=== PATIENT | female | born 2000 | race Caucasian/White ===

== ENCOUNTER 2019-05-03 07:39 | Day surgery (SDC) | payer OTHER ==
[~2019-05-03] VITALS: Ht 162.6 cm; Wt 77.1 kg
--- NOTE | ~2019-05-03 | OR ---
[facility] [address], [place] [address] Draft DATE OF OPERATION: 05/03/2019 SURGEON: Meghan Limon DO PREOPERATIVE DIAGNOSES: 1. Incomplete miscarriage. 2. Rh negative, status post RhoGAM. 3. IV drug use. POSTOPERATIVE DIAGNOSES: 1. Incomplete miscarriage. 2. Rh negative, status post RhoGAM. 3. IV drug use. PROCEDURE PERFORMED: Dilation and curettage. CYBER TRANSPORT SYSTEMS SPECIALIST: None. ANESTHESIA: General. ESTIMATED BLOOD LOSS: 50 mL. SPECIMEN: Products of conception. FINDINGS: Normal external genitalia. Normal urethra, clitoris, bilateral Erma's, and Bartholin glands. The placenta had prolapsed through the cervix and was removed with ring forceps. The fetus had already been expelled in the emergency department. The uterus was firm and involuted and bleeding was scant at the end of the procedure. COMPLICATIONS: None. INDICATIONS: Ms. Austin is an unfortunate 18-year-old, G3, P 0-0-3-0, who presented to the emergency PATIENT NAME: DEBBIE AUSTIN OPERATIVE REPORT DATE OF : 99 REPORT #: [id number] PHYSICIAN: MEGHAN LIMON DO PCP: NO PRIMARY CARE PHYSICIAN REPORT IS CONFIDENTIAL AND NOT TO BE RELEASED WITHOUT AUTHORIZATION [facility] [address], [place] [address] Draft department yesterday complaining of cramping and bleeding. An ultrasound was performed that demonstrated an intrauterine demise. The patient returned home and used IV methamphetamines. She returned this morning complaining of increasing bleeding. She passed the fetus in the emergency department. She was seen and evaluated by myself and the bleeding became heavier. She is Rh negative and received RhoGAM. The uterus was still enlarged and it was felt that this represented incomplete miscarriage. Decision was made to proceed with D and C. Risks, benefits, and alternatives were discussed in detail with the patient and her partner. The patient understood and wishes to proceed with the procedure. TECHNIQUE: The patient was taken to the operating room, where a time-out was performed to confirm correct patient, correct procedure. General anesthesia was adequately established. The patient was prepped and draped in dorsal lithotomy position, her feet in Yellofin stirrups. ICPs were on and running. No preoperative heparin was indicated. The patient did receive doxycycline 200 mg preoperatively orally per ACOG guidelines. The bladder was drained and a weighted speculum was placed in the vagina. The placenta was noted to be prolapsing through the cervix. This was grasped with ring forceps and gently removed. The placenta appears to be removed intact with no residual membranes or tissue remaining. The cervix was then gently dilated using Hegar dilators. A large sharp curette was selected and the curette was advanced gently to the fundus. Very gentle circumferential curettage was performed that demonstrated no additional remaining products of conception. The uterus was firm, involuted, and the bleeding was scant. The patient was then taken to PACU in good and stable condition. Sponge, needle, and instrument count was correct x2 at the end of the procedure. DO ANDRE Coulter/LINETTE /[id number] Copies: PATIENT NAME: DEBBIE AUSTIN OPERATIVE REPORT DATE OF : 99 REPORT #: [id number] PHYSICIAN: MEGHAN LIMON DO PCP: NO PRIMARY CARE PHYSICIAN REPORT IS CONFIDENTIAL AND NOT TO BE RELEASED WITHOUT AUTHORIZATION [address] [address] Draft ~ PATIENT NAME: DEBBIE AUSTIN OPERATIVE REPORT DATE OF : 99 REPORT #: [id number] PHYSICIAN: MEGHAN LIMON DO PCP: NO PRIMARY CARE PHYSICIAN REPORT IS CONFIDENTIAL AND NOT TO BE RELEASED WITHOUT AUTHORIZATION
--- NOTE | ~2019-05-03 | HP ---
[facility] [address], [place] [address] Draft ADMISSION DATE: 05/03/2019 CHIEF COMPLAINT: Vaginal bleeding and miscarriage. HISTORY OF PRESENT ILLNESS: Ms. Park is a 18-year-old G3, P-0-0-3-0, white female, who presents to the ER for miscarriage. She presented to the ED yesterday complaining of vaginal bleeding and ultrasound was performed that demonstrated a demise of 11 weeks gestation. Today, she returned to the ER with worsening bleeding and passed an 11-week sized fetus. Since then, she has continued to bleed and to be in significant pain. The uterus remains enlarged and she necessitates further evaluation and treatment in the OR. The patient does admit to a history of IV methamphetamine use. Her last use was last night. HIV and hepatitis C are pending. PAST MEDICAL HISTORY: Denies. PAST SURGICAL HISTORY: D and C following her 1st miscarriage. ALLERGIES: None. MEDICATIONS: None. SOCIAL HISTORY: The patient admits to IV drug use. Occasional alcohol use. No history of sexually transmitted diseases. REVIEW OF SYSTEMS: A complete review of systems was performed and negative except per HPI. PHYSICAL EXAMINATION: VITAL SIGNS: Pulse 53, respiratory rate 24, blood pressure 111/52, pulse ox 96. GENERAL: The patient is a thin white female, lying on her side in a hospital gurney. She cries out in pain. She is uncomfortable appearing. HEENT: Normocephalic, atraumatic. NECK: Supple. Trachea midline. No masses or lymphadenopathy. PATIENT NAME: DEBBIE PARK HISTORY AND PHYSICAL DATE OF : 99 REPORT #: [id number] PHYSICIAN: MEGHAN LIMON DO PCP: NO PRIMARY CARE PHYSICIAN REPORT IS CONFIDENTIAL AND NOT TO BE RELEASED WITHOUT AUTHORIZATION [facility] [address], [place] [address] Draft HEART: Regular rate and rhythm. LUNGS: Clear to auscultation bilaterally. ABDOMEN: Soft, nondistended, nontender. LEGS: No edema. PELVIC: The patient with moderate amount of blood on her vulva and inner thighs. She has a large clot in her pad. Nurse reports that this is the 5th pad that she has changed. The uterus remains enlarged and moderately tender. No other masses. LABORATORY DATA: Hemoglobin 12.9, platelets 232. Of note, the patient is Rh negative and has received RhoGAM. Hep C and HIV have been drawn and are pending. ASSESSMENT: 1. Incomplete miscarriage. 2. Rh negative. 3. IV drug use. PLAN: The patient with incomplete miscarriage. She has expelled the fetus. An Anora chromosomal test was performed on products of conception earlier today. She continues to cramp and bleed and decision is then made to proceed with D and C in the OR. We reviewed dilation and curettage in detail. She has undergone D and C once before, but that was a suction D and C. We reviewed risks including perforation, intrauterine adhesions, known as Asherman syndrome that could lead to infertility in the future, or continued bleeding that could lead to additional procedures up to and including hysterectomy. We discussed risk of infection. The patient will receive doxycycline 200 mg p.o. now per ACOG guidelines. LR was running at 125. Her preoperative hemoglobin was 12.9, although I suspect this is somewhat lower as she has had some continued bleeding. She is not tachycardic. She did receive RhoGAM. We will take the patient to the OR for dilation and curettage. All questions were answered to the best of my ability and patient's apparent satisfaction. Consents have been signed and the OR crew notified. Meghan Limon DO JDW/MODL /[id number] PATIENT NAME: DEBBIE PARK HISTORY AND PHYSICAL DATE OF : 99 REPORT #: [id number] PHYSICIAN: MEGHAN LIMON DO PCP: NO PRIMARY CARE PHYSICIAN REPORT IS CONFIDENTIAL AND NOT TO BE RELEASED WITHOUT AUTHORIZATION [facility] [address], [place] [address] Draft Copies: ~ PATIENT NAME: DEBBIE PARK HISTORY AND PHYSICAL DATE OF : [birth year] REPORT #: [id number] PHYSICIAN: MEGHAN LIMON DO PCP: NO PRIMARY CARE PHYSICIAN REPORT IS CONFIDENTIAL AND NOT TO BE RELEASED WITHOUT AUTHORIZATION
--- OUTSIDE RECORDS SUMMARY | 2019-05-03 07:42 | XMS ---
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 Cici VISIT COUNT (12 MO.) 2 LUIS MIGUEL Marsh TOTAL 2 NOTE: Visits indicate total known visits. ED/UCC VISIT TRACKING (12 MO.) 05/03/2019 07:39 LUIS MIGUEL Becerra OR TYPE: Emergency COMPLAINT: - POSSIBLE MISCARRIAGE 05/02/2019 11:02 LUIS MIGUEL Becerra OR TYPE: Emergency COMPLAINT: - POSS WITH VAGINAL BLEEDING INPATIENT VISIT TRACKING (12 MO.) No inpatient visits to display in this time frame [email or web address]
[2019-05-03] MEDS ORDERED: NORCO 5-325 TA1 EACH PO (08:40)
--- NOTE | 2019-05-03 11:40 | NUR ---
05/03/19 1140 Sheets,Elisa 1130 PT ARRVIVED WITH ORAL AIRWAY IN PLACE AND RESP EVEN AND UNLABORED. PT NONAROUSABLE TO PAINFUL STIMULI AND JAW THRUST USED OFF AND ON TO MAINTAIN AIRWAY. 1139 PT REACTIVE AND ABLE TO FOLLOW COMMANDS TO OPEN MOUTH AND AIRWAY REMOVED. PT BACK TO SLEEP. RESP EVEN AND UNLABORED.
--- NOTE | 2019-05-03 12:04 | NUR ---
SOUP AND SANDWICH ORDERED FROM DIETARY. ICED WATER GIVEN. CALL LIGHT W/IN REACH. PATIENT DRINKING WATER AND TOLERATING THAT WELL.
--- NOTE | 2019-05-03 12:08 | NUR ---
BOYFRIEND AT BEDSIDE.
[2019-05-03] MEDS ORDERED: MOTRIN IB200 MG PO (12:34)
--- NOTE | 2019-05-03 12:35 | NUR ---
CALL TO ER AND SPOKE WITH BRYSON JUAREZ AND SHE REPORTS THE RX FOR NORCO WAS NEVER GIVEN TO THE PATIENT IN THE ER.
--- NOTE | 2019-05-03 12:49 | NUR ---
PATIENT IS SITTING UP IN BED EATING HER SANDWICH.
--- NOTE | 2019-05-03 14:17 | NUR ---
PATIENT IS LYING FLAT ON HER LEFT SIDE. BOYFRIEND AT BEDSIDE. PATIENT ASKING FOR JELLY BEANS. JELLY BEANS ARE GIVEN.
== END 2019-05-03 14:35 | disposition home or self-care (01) ==
LOC: ED 07:39 → DS 10:32
PROVIDERS: Obstetrics & Gynecology
PROC: 10D17ZZ Extraction of Products of Conception, Retained, Via Natural or Artificial Opening (ICD-10-PCS; principal; 2019-05-03 11:00)
DX: O03.4 Incomplete spontaneous abortion without complication (principal); Z67.91 Unspecified blood type, Rh negative
CPT/HCPCS: 00952; 85025; 86703; 87521; 87522; 96374; 96375; 96376; 99284-25; J0330; J1100; J1885; J2250; J2405; J2590; J2704; J2765; J2790; J3010; J7030; J7120

== ENCOUNTER 2020-04-26 22:03 | Inpatient (IN) | payer OTHER ==
[~2020-04-26] VITALS: Ht 162.6 cm; Wt 84.4 kg
--- NOTE | ~2020-04-26 | OR ---
[facility] [address] [place], [place] [address] Draft DATE OF OPERATION: 04/27/2020 SURGEON: Meghan Limon DO PREOPERATIVE DIAGNOSES: 1. Term . 2. Non-reassuring heart tracing. POSTOPERATIVE DIAGNOSES: 1. Term . 2. Non-reassuring heart tracing. 3. Bandl's band with difficult extraction. 4. J-extension of uterine incision. PROCEDURE PERFORMED: Primary delivery with J-extension of uterine incision. SURGEON: Meghan Limon DO RIVET TOSSER: Samantha Peres MD ANESTHESIA: Epidural. ESTIMATED BLOOD LOSS: 700 mL. COMPLICATIONS: Difficult uterine extraction, secondary to Bandl's ring. FINDINGS: On laparotomy, a Bandl's ring was noted requiring Maylard extension, Pfannenstiel incision, and J-extension of low transverse uterine incision. Difficult extraction of the fetus and reverse breech positioning with the head still entrapped by the Bandl's ring. Bandl's ring was released with banded scissors. J-extension repaired in three layers and lower uterine incision repaired in 2 layers. Normal bilateral tubes and ovaries. Delivery of viable female , 6 pounds 15 ounces with Apgars 4 and 8. No nuchal cord noted. PH of the umbilical artery 7.02, base excess -11.3, pH venous 7.24 PATIENT NAME: DEBBIE AUSTIN OPERATIVE REPORT DATE OF : 99 REPORT #: [id number] PHYSICIAN: MEGHAN LIMON DO PCP: NO PRIMARY CARE PHYSICIAN REPORT IS CONFIDENTIAL AND NOT TO BE RELEASED WITHOUT AUTHORIZATION [facility] [address] [place], [place] [address] Draft with base excess -2.6. ESTIMATED BLOOD LOSS: 700 mL. INDICATIONS: Ms. Austin is a pleasant 19-year-old, G4, P0-0-3-0, white female with intrauterine at 40 weeks and 2 days gestation, who presented to Labor and Delivery with contractions increasing in frequency and intensity. She progressed to 5 cm and epidural was placed. Artificial rupture of membranes was performed. The patient then developed recurrent variable decelerations that were initially managed with intrauterine resuscitation including maternal repositioning. However, these variables progressed and decision was made to proceed with stat delivery. Risks, benefits, and alternatives were discussed with the patient. The patient understands and wishes to proceed with the procedure. TECHNIQUE: Decision was to proceed with primary low transverse delivery. The patient received terbutaline in the labor room and then was taken to the operating room where the patient was prepped and draped in the supine position with a bump under the right hip. Ancef 2 g were given preoperatively per SCIP protocol. ICPs were on and running and a Arvizu catheter had previously been inserted. The epidural was bolused and found to be adequate. A Pfannenstiel skin incision was made 2 cm above the pubic symphysis and incision was carried down to the fascia. Fascia was nicked in the midline and fascial incision was extended bilaterally using curved Orta scissors. The fascia was grasped with Vicky's, elevated, and the underlying rectus muscles dissected off bluntly and sharply. The rectus muscles were divided in the midline and peritoneum was grasped with hemostats elevated and entered sharply. Peritoneal incision was extended bilaterally using blunt dissection. Lower uterine segment was identified and noted to be poorly developed despite advanced cervical dilation at 7 cm. The Dylan self retractor was then placed and the lower segment again identified. Hysterotomy was performed just above the vesicouterine reflection and again noted to be quite sick. Allis-Blayne's were placed. The myometrium elevated and hysterotomy was completed with clear fluid noted. Hysterotomy was then extended bilaterally using blunt dissection. The surgeon's hand was then placed in the uterine cavity and a tight circumferential ring was noted between the lower uterine segment and the upper uterus consistent with a Bandl's ring. The vertex was attempted to be gently elevated through the ring. However, this was unable to be accomplished. Decision was made to proceed with extension of the uterine incision with the J-extension. Banded scissors was selected and the left edge of the uterine incision was extended up near the cornua. The fetus was not easily delivered in a reverse breech manner and another attempt was made to elevate the head from the lower uterine segment. This was unable to be gently PATIENT NAME: DEBBIE AUSTIN OPERATIVE REPORT DATE OF : 99 REPORT #: [id number] PHYSICIAN: MEGHAN LIMON DO PCP: NO PRIMARY CARE PHYSICIAN REPORT IS CONFIDENTIAL AND NOT TO BE RELEASED WITHOUT AUTHORIZATION [facility] [address] [place], [place] [address] Draft accomplished and decision was made to again attempt reverse breech presentation. The knee was grasped and swept medially and able to be delivered. The 2nd leg was swept medially and the legs and hips were delivered. The abdomen was delivered to the shoulders and the baby was rotated to the occiput anterior position. Surgeon's hand was placed on the maxilla and the fetus' head was flexed. It was unable to be delivered through the Bandl's ring. Band incisions were selected and the Bandl's ring was snipped using the bandage scissors and was released. The vertex then delivered. Cord was quickly doubly clamped and cut and the was handed to the waiting pediatric team for further care. Cord gases were obtained. The placenta was then manually extracted and sent to pathology for further evaluation. The uterus was cleared of any remaining products of conception or clot and the uterus was noted to be firm. Pitocin was given per protocol. The J-extension was then closed in 3 layers using 0 Vicryl and 0 Monocryl with excellent reapproximation and hemostasis. The lower uterine transverse incision was then closed in 2 layers using 0 Vicryl suture. A 2nd imbricating layer was closed using 0 Vicryl in a vertical manner with excellent imbrication. Small amount of oozing was noted in the midline and this was made hemostatic with a ygfier-qw-edbdi of 0 Vicryl. The pelvis was irrigated and found to be hemostatic. Normal tubes and ovaries bilaterally were identified. ACell sheet was applied to the lower uterine segment after the Dylan self retractor was removed. Peritoneum was then reapproximated using 2-0 Vicryl in a running nonlocked manner. The Maylard incision of the left abdominus muscle was then inspected and found to be hemostatic. It was reapproximated using 2 [id number] of 2-0 chromic. The rectus sheath was examined and made hemostatic with judicious use of Bovie electrocautery. The rectus sheath was then irrigated and again found to be hemostatic. Rectus was then reapproximated using 0 Vicryl and 3 interrupted sutures. ACell powder was applied to the rectus. Fascia was then reapproximated using 0 Vicryl in a running nonlocked manner. Subcu was reapproximated using 3-0 Vicryl in a running nonlocked manner. Skin was reapproximated using surgical jeanne. The uterus was Crede'd for scant amount of blood. The patient then remained in the operating room and a TAP block was performed by anesthesia at the completion of my procedure. Sponge, needle, and instrument count was correct x2 at the end of the procedure. Dr. Peres was present and participated in all portions of the procedure. Meghan Limon DO JDW/MODL /[id number] PATIENT NAME: DEBBIE AUSTIN OPERATIVE REPORT DATE OF : 99 REPORT #: [id number] PHYSICIAN: MEGHAN LIMON DO PCP: NO PRIMARY CARE PHYSICIAN REPORT IS CONFIDENTIAL AND NOT TO BE RELEASED WITHOUT AUTHORIZATION [facility] [address] [place] [address] Draft Copies: ~ PATIENT NAME: DEBBIE AUSTIN OPERATIVE REPORT DATE OF : 99 REPORT #: [id number] PHYSICIAN: MEGHAN LIMON DO PCP: NO PRIMARY CARE PHYSICIAN REPORT IS CONFIDENTIAL AND NOT TO BE RELEASED WITHOUT AUTHORIZATION
[~2020-04-26 22:03] MED LIST: MOTRIN IB200 MG PO; NORCO 5-325 TA1 EACH PO
--- NOTE | 2020-04-27 12:18 | PR ---
[facility] [address] [facility] [place] [address] Signed Progress Notes IP Datetime Report Generated by CPN: 04/27/2020 12:18 PROGRESS NOTES: [id number] Impression: Normal Progression of Labor; Reassuring Heart Rate Plan: Continue Present Management VITAL SIGNS: [id number] Vital Signs: Reviewed; Within Normal Limits EXAM: [id number] Dilatation: 3.5 Effacement: 90 Station: -2 Contractions: q 3-7 minutes MEMBRANES: [id number] Comments: Pt soaking in the tub and doing well. No questions or concerns at this time. RN to perform cervical check when out of the tub. No questions or concerns at this time. Continue expectant management. FETUS A: [id number] FHR Baseline: 125 Variability: Minimal - >Undetectable to <=5bpm Accelerations: None Decelerations: None FHR Category: Category II Presentation: Vertex Comments on Fetus A: No evidence of metabolic acidosis FETUS B: [id number] Signing Physician: Meghan Limon DO Copies: ~ *Electronically Signed* 04/27/20 1218 MEGHAN LIMON DO PATIENT NAME: PARK,DEBBIE [place] PROGRESS NOTE DATE OF : 99 PHYSICIAN: MEGHAN LIMON DO RPT #: [id number] REPORT IS CONFIDENTIAL AND NOT TO BE RELEASED WITHOUT AUTHORIZATION
--- NOTE | 2020-04-27 16:23 | PR ---
[facility] [address] [place], [place] [address] Signed Progress Notes IP Datetime Report Generated by CPN: 04/27/2020 16:22 PROGRESS NOTES: [id number] Impression: Normal Progression of Labor; Reassuring Heart Rate Procedures: Artificial ROM; Intrauterine Pressure Catheter; Sterile Vag Exam Plan: Continue Present Management VITAL SIGNS: [id number] Vital Signs: Reviewed; Within Normal Limits EXAM: [id number] Dilatation: 3.5 Effacement: 90 Station: -2 Contractions: q 3-7 minutes MEMBRANES: [id number] Comments: Pt seen and examined. Doing well. Comfortable w/ epidural. AROM performed without difficulty. IUPC placed due to slow progession of labor. Discussed indications for augmentation w/ pitocin. Pt understands and agrees. FETUS A: [id number] FHR Baseline: 125 Variability: Minimal - >Undetectable to <=5bpm Accelerations: None Decelerations: None FHR Category: Category II Presentation: Vertex Comments on Fetus A: No evidence of metabolic acidosis FETUS B: [id number] Signing Physician: Meghan Limon DO Copies: ~ *Electronically Signed* 04/27/20 2117 MEGHAN LIMON DO PATIENT NAME: DEBBIE PARK PROGRESS NOTE DATE OF : 99 PHYSICIAN: MEGHAN LIMON DO RPT #: [id number] REPORT IS CONFIDENTIAL AND NOT TO BE RELEASED WITHOUT AUTHORIZATION
--- NOTE | 2020-04-27 16:36 | PR ---
[facility] [address] [place] [place] [address] Signed Progress Notes IP Datetime Report Generated by CPN: 04/27/2020 16:36 PROGRESS NOTES: [id number] Impression: Normal Progression of Labor; Reassuring Heart Rate Procedures: Scalp Electrode; Sterile Vag Exam Plan: Continue Present Management Other Plans: FSE VITAL SIGNS: [id number] Vital Signs: Reviewed; Within Normal Limits EXAM: [id number] Dilatation: 3.5 Effacement: 90 Station: -2 Contractions: q 3-7 minutes MEMBRANES: [id number] Comments: Pt seen and examined. Varible decelerations noted since AROM. Sterile vaginal exam confirms no prolapsed cord or other abnormalities. FSE placed without difficulty. Maternal repositioning employed, and will monitor closely FETUS A: [id number] FHR Baseline: 125 Variability: Minimal - >Undetectable to <=5bpm Accelerations: None Decelerations: None FHR Category: Category II Presentation: Vertex Comments on Fetus A: No evidence of metabolic acidosis FETUS B: [id number] Signing Physician: Meghan Limon DO Copies: ~ *Electronically Signed* 04/27/20 2785 MEGHAN LIMON DO PATIENT NAME: DEBBIE PARK PROGRESS NOTE DATE OF : 99 PHYSICIAN: MEGHAN LIMON DO RPT #: [id number] REPORT IS CONFIDENTIAL AND NOT TO BE RELEASED WITHOUT AUTHORIZATION
--- NOTE | 2020-04-27 17:18 | PR ---
[facility] [address] [place], [place] [address] Signed Progress Notes IP Datetime Report Generated by CPAmos: 04/27/2020 17:18 PROGRESS NOTES: [id number] Impression: Normal Progression of Labor Procedures: Sterile Vag Exam Plan: Continue Present Management Other Plans: Consider amnioinfusion VITAL SIGNS: [id number] Vital Signs: Reviewed; Within Normal Limits EXAM: [id number] Dilatation: 3.5 Effacement: 90 Station: -2 Contractions: q 3-7 minutes MEMBRANES: [id number] Comments: Pt seen and examined. Comfortable w/ contractions. Continued variable decelerations noted. Deep at times w/ good return to baseline. Sat and reviewed tracing w/ pt and partner, and discussed variable decelerations and indications for amnioinfusion, , or expectant management. Pt understands and agrees FETUS A: [id number] FHR Baseline: 125 Variability: Minimal - >Undetectable to <=5bpm Accelerations: None Decelerations: None FHR Category: Category II Presentation: Vertex Comments on Fetus A: No evidence of metabolic acidosis FETUS B: [id number] Signing Physician: Meghan Limon DO Copies: ~ *Electronically Signed* 04/27/20 2961 MEGHAN LIMON DO PATIENT NAME: DEBBIE PARK PROGRESS NOTE DATE OF : 99 PHYSICIAN: MEGHAN LIMON DO RPT #: [id number] REPORT IS CONFIDENTIAL AND NOT TO BE RELEASED WITHOUT AUTHORIZATION
--- NOTE | 2020-04-27 17:56 | PR ---
[facility] [address] [place], [place] [address] Signed Progress Notes IP Datetime Report Generated by JOSE DE JESUS: 04/27/2020 17:55 PROGRESS NOTES: [id number] Impression: Normal Progression of Labor; Reassuring Heart Rate Procedures: Amnio Infusion Plan: Continue Present Management Other Plans: Consider amnioinfusion Informed Consent Obtain: Vaginal Delivery; Section Delivery Other Informed Consents: Amnioinfusion VITAL SIGNS: [id number] Vital Signs: Reviewed; Within Normal Limits EXAM: [id number] Dilatation: 3.5 Effacement: 90 Station: -2 Contractions: q 3-7 minutes MEMBRANES: [id number] Comments: Pt seen and examined. Doing well. Variabile decelerations continue with intermittent deep variables. Variables quite sensitive to maternal positioning. Will start amnioinfusion. Continue to monitor closely. FETUS A: [id number] FHR Baseline: 125 Variability: Minimal - >Undetectable to <=5bpm Accelerations: None Decelerations: None FHR Category: Category II Presentation: Vertex Comments on Fetus A: No evidence of metabolic acidosis FETUS B: [id number] Signing Physician: Meghan Limon DO Copies: ~ *Electronically Signed* 04/27/20 9558 MEGHAN LIMON DO PATIENT NAME: DEBBIE PARK PROGRESS NOTE DATE OF : 99 PHYSICIAN: MEGHAN LIMON DO RPT #: [id number] REPORT IS CONFIDENTIAL AND NOT TO BE RELEASED WITHOUT AUTHORIZATION
--- NOTE | 2020-04-27 18:19 | PR ---
[facility] [address] [place], [place] [address] Signed Progress Notes IP Datetime Report Generated by JOSE DE JESUS: 04/27/2020 18:19 PROGRESS NOTES: [id number] Impression: Non-reassuring Heart Rate Procedures: Sterile Vag Exam Plan: Deliver- Section Other Plans: Consider amnioinfusion Informed Consent Obtain: Section Delivery Other Informed Consents: Amnioinfusion VITAL SIGNS: [id number] Vital Signs: Reviewed; Within Normal Limits EXAM: [id number] Dilatation: 3.5 Effacement: 90 Station: -2 Contractions: q 3-7 minutes MEMBRANES: [id number] Comments: Pt w/ variables not improved w/ intrauterine management. Recommended primary LTCS. Pt and partner understand and agree. Consents signed, OR team notified and en route, and Dr. Peres here to assist. Will continue intrauterine rescussitation. Terbutaline x 1 given. To OR for delivery FETUS A: [id number] FHR Baseline: 125 Variability: Minimal - >Undetectable to <=5bpm Accelerations: None Decelerations: None FHR Category: Category II Presentation: Vertex Comments on Fetus A: No evidence of metabolic acidosis FETUS B: [id number] Signing Physician: Meghan Limon DO Copies: ~ *Electronically Signed* 04/27/20 1814 MEGHAN LIMON DO PATIENT NAME: DEBBIE PARK PROGRESS NOTE DATE OF : 99 PHYSICIAN: MEGHAN LIMON DO [facility] #: [id number] REPORT IS CONFIDENTIAL AND NOT TO BE RELEASED WITHOUT AUTHORIZATION
--- NOTE | 2020-04-27 20:16 | NUR ---
04/27/20 2016 Elisa Gregory 2002 PT ARRIVED TO ROOM 104, PT DENIES PAIN AND NAUSEA. VSS. 2015 BABY TO CHEST WITH FBC RN AND STARTING BREAST FEEDING. FATHER AT BEDSIDE.
--- NOTE | 2020-04-28 07:53 | PR ---
[facility] [address] [place], [place] [address] Signed PP Progress Notes Datetime Report Generated by CPN: 04/28/2020 07:53 SUBJECTIVE: [id number] Pain: Within Normal Limits Flatus: Yes Vital Signs: [id number] Vital Signs: Reviewed; Within Normal Limits Cardiovascular: Normal Respiratory: Normal Abdomen/Uterus: Normal Lochia: Normal Vulva/Perineum: Not Done Breasts: Not Done CVA Tenderness: Normal Extremities: Normal Incision: Normal Progress: Normal Exam Comments: Fundus firm U-2 nontender. Incision remains bandaged IMPRESSION/PLAN/PROCEDURES: [id number] Impression: Normal Progression Plan: Continue Present Management Progress Notes: Pt seen and examined. Doing well. Pain well controlled. well. Postoperative Hgb 10.3. Awaiting Rhogam workup. Reviewed Bandl's band, J-extension, and implications for future . Pt very grateful and reports baby is doing very well. All questions answered. Possible d/c home tomorrow Signing Physician: Meghan Limon DO Copies: ~ *Electronically Signed* 04/28/20 0753 MEGHAN LIMON DO PATIENT NAME: DEBBIE PARK PROGRESS NOTE DATE OF : 99 PHYSICIAN: MEGHAN LIMON DO RPT #: [id number] REPORT IS CONFIDENTIAL AND NOT TO BE RELEASED WITHOUT AUTHORIZATION
--- NOTE | 2020-04-29 08:47 | PR ---
[facility] [address] [place], [place] [address] Signed PP Progress Notes Datetime Report Generated by CPN: 04/29/2020 08:47 SUBJECTIVE: [id number] Pain: Within Normal Limits Nausea/Vomiting: Denies Flatus: Yes Bowel Movement: No Vital Signs: [id number] Vital Signs: Reviewed; Within Normal Limits Cardiovascular: Normal Respiratory: Normal Abdomen/Uterus: Normal Lochia: Normal Vulva/Perineum: Not Done Breasts: Not Done CVA Tenderness: Normal Extremities: Normal Incision: Normal Progress: Normal Exam Comments: Fundus firm U-2 nontender. Incision healing well IMPRESSION/PLAN/PROCEDURES: [id number] Impression: Normal Progression Plan: Remove Rhona; Discharge Progress Notes: Pt seen and examined. Doing well. Ambulating, voiding, and tolerating full diet. Pain and lochia minimal. well. No lightheadedness/dizziness. Strongly desires d/c home. Reviewed d/c instructions in detail. Planning OCPs pp. Discussed C/S w/ Bandl's ring, J-extension, and implications for future . All questions answered. D/C home. F/U in [address] Rodriguez. Signing Physician: Meghan Limon DO Copies: ~ *Electronically Signed* 04/29/20 0847 MEGHAN LIMON DO PATIENT NAME: DEBBIE PARK PROGRESS NOTE DATE OF : 99 PHYSICIAN: MEGHAN LIMON DO RPT #: [id number] REPORT IS CONFIDENTIAL AND NOT TO BE RELEASED WITHOUT AUTHORIZATION
== END 2020-04-29 17:16 | disposition home or self-care (01) | DRG 787 ==
LOC: FBCO 22:03 → FBC 04-27 06:00
PROVIDERS: ADMIT Obstetrics & Gynecology
PROC: 3E0T3BZ Introduction of Anesthetic Agent into Peripheral Nerves and Plexi, Percutaneous Approach (ICD-10-PCS; 2020-04-27)
PROC: 10907ZC Drainage of Amniotic Fluid, Therapeutic from Products of Conception, Via Natural or Artificial Opening (ICD-10-PCS; 2020-04-27)
PROC: 10H07YZ Insertion of Other Device into Products of Conception, Via Natural or Artificial Opening (ICD-10-PCS; 2020-04-27)
PROC: 00HU33Z Insertion of Infusion Device into Spinal Canal, Percutaneous Approach (ICD-10-PCS; 2020-04-27)
PROC: 3E0R3BZ Introduction of Anesthetic Agent into Spinal Canal, Percutaneous Approach (ICD-10-PCS; 2020-04-27)
PROC: 10D00Z1 Extraction of Products of Conception, Low, Open Approach (ICD-10-PCS; principal; 2020-04-27 18:00)
PROC: 3E0234Z Introduction of Serum, Toxoid and Vaccine into Muscle, Percutaneous Approach (ICD-10-PCS; 2020-04-29)
DX: O76 Abnormality in fetal heart rate and rhythm complicating labor and delivery (principal); O99.355 Diseases of the nervous system complicating the puerperium; G89.18 Other acute postprocedural pain; O99.334 Smoking (tobacco) complicating childbirth; F17.210 Nicotine dependence, cigarettes, uncomplicated; O62.4 Hypertonic, incoordinate, and prolonged uterine contractions; Z3A.40 40 weeks gestation of pregnancy; Z37.0 Single live birth; O26.893 Other specified pregnancy related conditions, third trimester; Z67.41 Type O blood, Rh negative
CPT/HCPCS: 01961; 36415; 59025; 76942; 82803; 83030; 85025; 85027; 86850; 86900; 86901; 99213; A9270; C1763; J0690; J1885; J2270; J2550; J2590; J2790; J2795; J3010; J7121

== ENCOUNTER → 2021-01-23 | Emergency (ER) | payer OTHER ==
[~2021-01-23] VITALS: Ht 162.6 cm; Wt 63.5 kg
== END ==
LOC: ED 15:17
DX: S60.812A Abrasion of left wrist, initial encounter (principal); W45.8XXA Other foreign body or object entering through skin, initial encounter; F17.200 Nicotine dependence, unspecified, uncomplicated
CPT/HCPCS: 99282

== ENCOUNTER 2021-12-14 13:49 | Emergency (ER) | payer OTHER ==
[~2021-12-14] VITALS: Ht 162.6 cm; Wt 70.3 kg
[2021-12-14] MEDS ORDERED: CEPHALEXIN500 M1 PO (19:13)
== END 2021-12-14 19:49 | disposition home or self-care (01) ==
LOC: ED 13:49
DX: N39.0 Urinary tract infection, site not specified (principal); R33.9 Retention of urine, unspecified; F17.200 Nicotine dependence, unspecified, uncomplicated
CPT/HCPCS: 36415; 51702; 74177; 80048; 81001; 84702; 85025; 86900; 99284-25; J0696; J1170; J1885; J2405; J7030; Q9967

== ENCOUNTER 2022-05-17 15:23 | Emergency (ER) | payer OTHER ==
[~2022-05-17] VITALS: Ht 165.1 cm; Wt 68.0 kg
--- NOTE | ~2022-05-17 | EKG ---
[facility] [address] [facility] [place], [place] [address] Draft EK completed, results pending confirmation PATIENT NAME: DEBBIE PARK Electrocardiogram DATE OF : 99 PHYSICIAN: PRELIMINARY REPORT #: [id number] REPORT IS CONFIDENTIAL AND NOT TO BE RELEASED WITHOUT AUTHORIZATION
[~2022-05-17 15:23] MED LIST changes: +CEPHALEXIN500 M1 PO
== END 2022-05-17 18:11 | disposition home or self-care (01) ==
LOC: ED 15:23
DX: R07.2 Precordial pain (principal); Z53.21 Procedure and treatment not carried out due to patient leaving prior to being seen by health care provider
CPT/HCPCS: 36415; 71045; 80053; 83735; 84484; 85025; 93005; 93010

== ENCOUNTER 2024-05-12 14:18 | Inpatient (IN) | payer OTHER ==
[~2024-05-12] VITALS: Ht 165.1 cm; Wt 78.9 kg
--- NOTE | ~2024-05-12 | OR ---
[facility] [address] [place], [place] [address] Draft DATE OF OPERATION: 05/18/2024 SURGEON: Meghan Limon DO PREOPERATIVE DIAGNOSES: 1. Intrauterine at 37 weeks gestation. 2. History of prior section with J extension due to Bandl's band. 3. Polysubstance abuse. 4. Rh negative. POSTOPERATIVE DIAGNOSES: 1. Intrauterine at 37 weeks gestation. 2. History of prior section with J extension due to Bandl's band. 3. Polysubstance abuse. 4. Rh negative. 5. Omental adhesions. PROCEDURES PERFORMED: 1. Repeat low transverse section. 2. Lysis of adhesions, minimal. MEDICAL ASSISTANT OB GYN: Samantha Peres MD. ANESTHESIA: Spinal with postoperative TAP blocks. ESTIMATED BLOOD LOSS: 600 mL. FINDINGS: Delivery of viable male , 5 pounds 10 ounces, 909 Apgars in the LOT position via repeat low transverse incision. Estimated blood loss 600 mL. Normal uterus, tubes, and ovaries. With scar tissue noted from prior J extension with no other abnormalities noted. Small amount of omental adhesions to the anterior abdominal wall was taken down without difficulty. COMPLICATIONS: None. PATIENT NAME: DEBBIE AUSTIN OPERATIVE REPORT DATE OF : 99 REPORT #: [id number] PHYSICIAN: MEGHAN LIMON (CARLOS) PCP: NO PRIMARY CARE PHYSICIAN REPORT IS CONFIDENTIAL AND NOT TO BE RELEASED WITHOUT AUTHORIZATION [facility] [address] [place], [place] [address] Draft INDICATIONS: Ms. Austin is a 23-year-old, G5, P1-0-3-1 with IUP at 37 weeks gestation, who presented for repeat low transverse delivery due to prior J extension. The patient with polysubstance abuse on methadone treatment, but also using methamphetamines and fentanyl. The patient was consented for repeat low transverse delivery and is not interested in bilateral salpingectomy. Risks, benefits, and alternatives were discussed in detail with the patient. The patient understands and wished to proceed with the procedure. PROCEDURE IN DETAIL: The patient was taken the OR. A time-out was performed to confirm correct patient, correct procedure. Spinal anesthesia was adequately established. The patient was prepped and draped in the supine position with a bump on the right hip. Arvizu catheter was inserted. The patient received Ancef 2 g preoperatively and no heparin was indicated. Once spinal was noted to be adequate, a Pfannenstiel skin incision made through the prior scar and carried down to the fascia. Fascia was nicked in the midline. Fascial incision was extended bilaterally using curved Orta scissors. Fascia was grasped with Vicky's, elevated, and the underlying rectus muscle dissected off bluntly and sharply. Rectus was divided in the midline bluntly and peritoneum was entered bluntly. Peritoneal incision was extended cephalad caudad using sharp and blunt dissection. An Dylan self retractor was inserted and lower uterine segment was identified. Hysterotomy was performed using surgical scalpel for clear fluid. Hysterotomy was extended bilaterally using blunt dissection. The surgeon's hand placed the uterine cavity and the vertex elevated in the abdomen delivered with the assistance of fundal pressure. No nuchal cord was identified. The was delivered with the assistance of fundal pressure and the was vigorous and cried. Cord was doubly clamped and cut. The handed to the waiting pediatric team for further care. Cord section was retained for pediatrics. The placenta was expressed, intact with a centrally inserted three-vessel cord. Pitocin was administered per protocol and bleeding was minimal. Uterine cavity was cleared of any remaining products of conception or clot and closed in two layers using 0 Monocryl in a running first locked layer with a second imbricating layer in the vertical manner. Small amount of oozing was noted. This was made hemostatic with [id number]. The pelvis was irrigated and hemostatic. The Dylan was removed and omental adhesions were noted at the apex of the peritoneal incision. These were brought down using a LigaSure exact device without difficulty. Peritoneum was then reapproximated using 2-0 Vicryl in a running nonlocked manner. Rectus was made hemostatic with judicious use of Bovie electrocautery and plicated in the midline using 0 Vicryl. Fay was applied to the rectus sheath. Fascia was reapproximated using 0 Vicryl in a running nonlocked manner. Subcu was very thin and closure of the subcu was not indicated. Skin was then reapproximated using surgical jeanne. The uterus was Crede'd for scant amount of PATIENT NAME: DEBBIE AUSTIN OPERATIVE REPORT DATE OF : 99 REPORT #: [id number] PHYSICIAN: MEGHAN LIMON (CARLOS) DO PCP: NO PRIMARY CARE PHYSICIAN REPORT IS CONFIDENTIAL AND NOT TO BE RELEASED WITHOUT AUTHORIZATION [facility] [address] [place], [place] [address] Draft blood. The patient was taken to PACU in good and stable condition. Following TAP block per Anesthesia. Sponge, needle and instrument were counts correct x2 at the end of the procedure. Dr. Peres was present and participated in all portions of the procedure. DO ANDRE Coulter/MODL /[id number] Copies: ~ PATIENT NAME: DEBBIE AUSTIN OPERATIVE REPORT DATE OF : 99 REPORT #: [id number] PHYSICIAN: MEGHAN LIMON DO (JD) PCP: NO PRIMARY CARE PHYSICIAN REPORT IS CONFIDENTIAL AND NOT TO BE RELEASED WITHOUT AUTHORIZATION
[~2024-05-12 14:18] MED LIST changes: +BUPRENORPHINE HC2 MG SL
[2024-05-17] MEDS ORDERED: LACTATED RINGER'S 1,000 ML IV SCH (17:15)
[2024-05-17] MEDS ORDERED: LACTATED RINGER'S 2,000 ML IV PRN (17:15)
[2024-05-18 06:22] LABS: HEMATOCRIT 31.9 % (35.0-50.0); MCH 31.7 (27-36); MCHC 34.5 g/dl (30-36); MCV 91.9 fl (81-99); RBC 3.47 M/ul (4.3-5.7); RDW 12.9 (10.5-15.0)
[2024-05-18 06:52] LABS: AMPHETAMINES, URINE POSITIVE (NEGATIVE); BARBITURATES, URINE NEGATIVE (NEGATIVE); BENZODIAZEPINE, URINE NEGATIVE (NEGATIVE); BUPRENORPHINE, URINE NEGATIVE (NEGATIVE); CANNABINOID, URINE NEGATIVE (NEGATIVE); COCAINE, URINE NEGATIVE (NEGATIVE); ECSTASY, URINE POSITIVE (NEGATIVE); FENTANYL, URINE POSITIVE (NEGATIVE); METHADONE, URINE POSITIVE (NEGATIVE); OPIATES, URINE NEGATIVE (NEGATIVE); OXYCODONE, URINE NEGATIVE (NEGATIVE); PHENCYCLIDINE, URINE NEGATIVE (NEGATIVE)
[2024-05-18] MEDS ORDERED: CEFAZOLIN SODIUM 2 GM/20 ML SYR IV SCH (07:00)
[2024-05-18] MEDS ORDERED: SOD+POT BICARB/CITRIC ACID 2 EA TABLET.EFF PO SCH (07:00)
[2024-05-18 07:05] VITALS: BP 114/76
[2024-05-18 07:12] LABS: ABO O; ANTIBODY SCREEN POSITIVE; RH NEGATIVE
[2024-05-18] MEDS ORDERED: ondansetron HCL 4 MG/2 ML VIAL IV PRN ×3 (07:15→09:30)
[2024-05-18] MEDS ORDERED: DEXAMETHASONE SOD PHOS 4 MG/ML VIAL ONE ×2 (07:15→08:14)
[2024-05-18] MEDS ORDERED: KETOROLAC TROMETHAMINE 30 MG/ML VIAL ONE (07:15)
[2024-05-18] MEDS ORDERED: NALOXONE HCL 0.4 MG SYR IV PRN ×2 (07:15→09:30)
[2024-05-18] MEDS ORDERED: ondansetron HCL 4 MG/2 ML VIAL ONE (07:15)
[2024-05-18] MEDS ORDERED: SODIUM CHLORIDE 0.9% 80 ML IV ONE (07:15)
[2024-05-18] MEDS ORDERED: fentaNYL citrate 50 MCG/ML SDV IV PRN (07:15)
[2024-05-18] MEDS ORDERED: ePHEDrine sulfate 50 MG/ML AMP ONE (07:15)
[2024-05-18] MEDS ORDERED: IBLOOD GLUCOSE TEST STRIP 1 EA TEST VI PRN (07:15)
[2024-05-18] MEDS ORDERED: PHENYLEPHRINE HCL 10 MG/ML VIAL ONE (07:15)
[2024-05-18] MEDS ORDERED: OXYTOCIN 10 UNITS/ML VIAL ONE (07:15)
[2024-05-18] MEDS ORDERED: BUPIVACAINE 0.75% IN DEXTROSE 2 ML AMP ONE ×2 (07:16→21:48)
[2024-05-18] MEDS ORDERED: LIDOCAINE HCL 2% 5 ML SDV ONE ×2 (07:16→21:48)
[2024-05-18] MEDS ORDERED: MORPHINE SULFATE 1 MG/ML VIAL ONE (07:16)
[2024-05-18] MEDS ORDERED: fentaNYL citrate 100 MCG/2 ML VIAL ONE (07:16)
[2024-05-18] MEDS ORDERED: VASOPRESSIN 20 UNITS/ML VIAL ONE (07:39)
[2024-05-18 07:44] LABS: ANTIBODY IDENTIFICATION ANTI-D
[2024-05-18] MEDS ORDERED: Ropivacaine HCl 0.5% 30 ML VIAL ONE (08:14)
[2024-05-18] MEDS ORDERED: dexmedeTOMIDine HCl 200 MCG/2 ML VIAL ONE ×2 (08:14→21:48)
[2024-05-18] MEDS ORDERED: SODIUM CHLORIDE 0.9% 20 ML IV ONE (08:14)
[2024-05-18] MEDS ORDERED: LACTATED RINGER'S 1,000 ML IV ONE (08:29)
[2024-05-18] MEDS ORDERED: OXYCODONE HCL 5 MG TAB PO PRN (09:00)
[2024-05-18] MEDS ORDERED: PROMETHAZINE HCL 25 MG SUPP PR PRN (09:00)
[2024-05-18] MEDS ORDERED: SENNOSIDES/DOCUSATE 1 EA TAB PO SCH (09:00)
[2024-05-18] MEDS ORDERED: PROMETHAZINE HCL 25 MG TAB PO PRN (09:00)
[2024-05-18] MEDS ORDERED: MORPHINE SULFATE 15 MG TABCR PO SCH (09:00)
[2024-05-18] MEDS ORDERED: METOCLOPRAMIDE HCL 10 MG/2 ML SDV IV PRN (09:00)
[2024-05-18] MEDS ORDERED: OXYTOCIN/0.9 % SODIUM CHLORIDE 500 ML IV SCH (09:00)
[2024-05-18] MEDS ORDERED: LACTATED RINGER'S 1,000 ML IV SCH (09:00)
[2024-05-18] MEDS ORDERED: bisacodyL 10 MG SUPP PR PRN (09:00)
[2024-05-18] MEDS ORDERED: PROCHLORPERAZINE EDISYLATE 10 MG/2 ML VIAL IV PRN (09:00)
[2024-05-18] MEDS ORDERED: METHADONE HCL 10 MG TAB PO SCH (09:00)
--- NOTE | 2024-05-18 09:15 | NUR ---
05/18/24 0915 Sheets,Elisa 7139 PT ARRIVED TO PACU ON RA, PT ASLEEP OFF AND ON AND REPORTS "BEING TIRED." SINUS IRREGULAR HEART RATE NOTED AND CORPORATE COMMUNICATIONS ASSOCIATE AWARE. PT REPORTS SMALL AMOUNT OF PAIN WITH FUNDAL CHECK, /. MID SIZE CLOT NOTED WITH FUNDAL CHECK, FBC RN AWARE. PT RESTING AND DENIES CONCERNS. PT SIGNIFICANT OTHER HOLDING BABY.
[2024-05-18] MEDS ORDERED: diphenhydrAMINE HCL 25 MG CAP PO PRN (09:30)
[2024-05-18] MEDS ORDERED: MORPHINE SULFATE 4 MG/ML VIAL IV PRN (09:30)
[2024-05-18] MEDS ORDERED: HYDROmorphone HCL 1 MG/ML SYR IV PRN (09:30)
[2024-05-18] MEDS ORDERED: KETOROLAC TROMETHAMINE 30 MG/ML VIAL IV PRN (09:30)
[2024-05-18] MEDS ORDERED: SIMETHICONE 125 MG TABLET CHEWABLE PO SCH (11:00)
[2024-05-18] MEDS ORDERED: TRANEXAMIC ACID IN NACL,ISO-OS 100 ML IV ONE (11:40)
[2024-05-18] MEDS ORDERED: TRANEXAMIC ACID 1,000 MG in SODIUM CHLORIDE 0.9% 100 ML IV ONE (11:50)
[2024-05-18] MEDS ORDERED: miSOPROStoL 200 MCG TAB PO ONE ×2 (11:50)
[2024-05-18 13:23] LABS: HEMATOCRIT 32.8 % (35.0-50.0); MCH 30.8 (27-36); MCHC 33.6 g/dl (30-36); MCV 91.9 fl (81-99); RBC 3.57 M/ul (4.3-5.7); RDW 12.9 (10.5-15.0)
[2024-05-18 13:24] LABS: INR 1.02 (0.80-1.30); PARTIAL THROMBOPLASTIN TIME 27.1 Sec (22.9-41.3); PROTIME 12.7 Sec (11.2-14.2)
[2024-05-18] MEDS ORDERED: KETOROLAC TROMETHAMINE 30 MG/ML VIAL IV SCH (14:00)
[2024-05-18] MEDS ORDERED: FERROUS SULFATE 325 MG TAB PO SCH (17:00)
[2024-05-18] MEDS ORDERED: METHYLERGONOVINE MALEATE 0.2 MG/ML AMP IM ONE (19:00)
--- NOTE | 2024-05-18 19:06 | PR ---
[facility] [address] [place], [place] [address] Signed PP Progress Notes Datetime Report Generated by CPN: 05/18/2024 19:06 SUBJECTIVE: [id number] Pain: Within Normal Limits Nausea/Vomiting: Denies Flatus: No Bowel Movement: No Vital Signs: [id number] Vital Signs: Reviewed Cardiovascular: Normal Respiratory: Normal Abdomen/Uterus: Abnormal Lochia: Abnormal Vulva/Perineum: Normal Breasts: Not Done CVA Tenderness: Normal Extremities: Normal Incision: Normal Progress: Normal Exam Comments: Fundus U=0 Bimanual exam shows moderate size clot in the uterus that was evacuated. Uncomfortable but tolerated well. IMPRESSION/PLAN/PROCEDURES: [id number] Impression: Normal Progression Other Procedures: Methergine 0.2mg IM x 1 dose Progress Notes: Pt seen and examined. Doing well. Have reviewed QBL w/ RN throughout day. Pt received TXA and cytotec but continues to have some bleeding. Coag panel per protocol normal this afternoon w/ normal fibrinogen. See RN chartig for exact QBL but approx 1300cc. Uterine clot evacuated and uterus firm and involuted. Will administere methergine 0.2mg IM x one dose. Will continue to monitor. Consider Marj if continued bleeding. Reviewed w/ pt. Will check CBC in AM. All questions answered Signing Physician: Meghan Limon DO Copies: ~ *Electronically Signed* 05/18/24 4789 MEGHAN LIMON (CARLOS) DO PATIENT NAME: DEBBIE PARK PROGRESS NOTE DATE OF : 99 PHYSICIAN: MEGHAN LIMON (JD) DO RPT #: [id number] REPORT IS CONFIDENTIAL AND NOT TO BE RELEASED WITHOUT AUTHORIZATION
--- NOTE | 2024-05-18 21:19 | PR ---
[facility] [address] [facility] [place] [place] [address] Signed PP Progress Notes Datetime Report Generated by CPN: 05/18/2024 21:19 SUBJECTIVE: [id number] Pain: Within Normal Limits Pain Comments: ongoing bleeding Nausea/Vomiting: Denies Flatus: No Bowel Movement: No Vital Signs: [id number] Vital Signs: Reviewed; Within Normal Limits Cardiovascular: Normal Respiratory: Normal Abdomen/Uterus: Abnormal Lochia: Abnormal Vulva/Perineum: Normal Breasts: Not Done CVA Tenderness: Normal Extremities: Normal Incision: Normal Progress: Normal Exam Comments: Uterus examined and large clot in uterus. She tolerated exam poorly. IMPRESSION/PLAN/PROCEDURES: [id number] Impression: Normal Progression Other Impression: Ongoing bleeding Other Plans: To OR to evacuate clots Other Procedures: Methergine 0.2mg IM x 1 dose Progress Notes: She is continuing to have some ongoing bleeding. Exam of the uterus shows continued large clot in the uterus which could not be removed. I feel evacuation is necessary to allow bleeding to improve. I think the Marj may also be needed to assure control of the pp bleeding. She is stable at this time. Discussed w/ patient and partner and they agree with plan. Also discussed w/ Dr. Limon. Signing Physician: Samantha Peres MD Copies: ~ *Electronically Signed* 05/18/24 9076 SAMANTHA PERES MD PATIENT NAME: DEBBIE PARK PROGRESS NOTE DATE OF : 99 PHYSICIAN: SAMANTHA PERES MD RPT #: [id number] REPORT IS CONFIDENTIAL AND NOT TO BE RELEASED WITHOUT AUTHORIZATION
[2024-05-18] MEDS ORDERED: CEFAZOLIN SODIUM 2 GM/20 ML SYR ONE (21:42)
[2024-05-18] MEDS ORDERED: CEFAZOLIN SODIUM 2 GM/20 ML SYR IV ONE (22:00)
[2024-05-18] MEDS ORDERED: propofoL 200 MG/20 ML VIAL ONE (22:09)
[2024-05-18 22:52] LABS: HEMATOCRIT 25.5 % (35.0-50.0); HEMOGLOBIN 8.8 g/dL (12.0-18.0); MCH 31.4 (27-36); MCHC 34.4 g/dl (30-36); MCV 91.3 fl (81-99); RBC 2.79 M/ul (4.3-5.7); RDW 13.2 (10.5-15.0)
[2024-05-18 23:02] LABS: PARTIAL THROMBOPLASTIN TIME 26.5 Sec (22.9-41.3)
[2024-05-18 23:03] LABS: INR 1.04 (0.80-1.30); PROTIME 12.9 Sec (11.2-14.2)
[2024-05-18 23:11] VITALS: BP 112/56
--- NOTE | 2024-05-18 23:16 | NUR ---
05/18/24 2316 Francisca Laureano 2229- PT ARRIVES TO PACU, SEMI ATKINSON POSITION. DROWSY BUT WAKES EASILY TO VERBAL STIMULI. LR INFUSING TO 20 G IV IN LAC. BREATHING EVEN AND NON LABORED. EMILY IN PLACE AND PLACED TO 80 MMHG, NO BLEEDING NOTED. PT REPORTS FEET FEEL NUMB BUT ABLE TO MOVE TOES. DENIES PAIN AND NAUSEA. ALL MONITORS IN PLACE. 2245- LAB AT BEDSIDE TO COLLECT COAGS, AFTER 1 STICK UNABLE TO COLLECT, LABS COLLECTED FROM IV SITE. 2255- PT RESTING INTERMITTENTLY, NO SIGNS OF DISTRESS. RODRIGUEZ CATHETER IN PLACE DRAINAING CLEAR YELLOW URINE. NO BLEEDING NOTED AROUND EMILY. PT TO GO BACK TO [facility]. 2303- PT TAKEN BACK TO [facility], ROOM 106. BED PLUGGED IN, SIGNIFICANT OTHER IN ROOM AND BABY IN [facility]. LR CONTINUES TO INFUSE TO LAC IV. EMILY PLACED TO 80 MMHG. PT DENIES PAIN AND NAUSEA. REPORT TO DEBBIE MASSEY AT BEDSIDE, CARE OF PT TURNED OVER AT THIS TIME.
[2024-05-19] MEDS ORDERED: LACTATED RINGER'S 1,000 ML IV SCH (03:30)
[2024-05-19 03:38] LABS: HEMATOCRIT 22.5 % (35.0-50.0); HEMOGLOBIN 7.8 g/dL (12.0-18.0); MCH 31.5 (27-36); MCHC 34.8 g/dl (30-36); MCV 90.6 fl (81-99); RBC 2.48 M/ul (4.3-5.7); RDW 13.3 (10.5-15.0)
[2024-05-19 03:47] LABS: PARTIAL THROMBOPLASTIN TIME 27.8 Sec (22.9-41.3)
[2024-05-19 03:48] LABS: INR 1.06 (0.80-1.30); PROTIME 13.1 Sec (11.2-14.2)
[2024-05-19 04:21] LABS: ABO O; ANTIBODY SCREEN POSITIVE; RH NEGATIVE
[2024-05-19 04:22] LABS: ANTIBODY IDENTIFICATION ANTI-D; FETAL HEMOGLOBIN SCREEN NEGATIVE; RHIG DOSE 1; RHIG STATUS CANDIDATE; RHIG VIAL 1 RG23O03-Q
[2024-05-19] MEDS ORDERED: CEFAZOLIN SODIUM 2 GM/20 ML SYR IV SCH (04:30)
[2024-05-19 06:07] LABS: HEMATOCRIT 21.9 % (35.0-50.0); HEMOGLOBIN 7.6 g/dL (12.0-18.0); MCH 31.8 (27-36); RBC 2.4 M/ul (4.3-5.7); RDW 13.1 (10.5-15.0)
[2024-05-19] MEDS ORDERED: ondansetron HCL 4 MG/2 ML VIAL IV PRN (09:30)
--- NOTE | 2024-05-19 09:44 | PR ---
[facility] [address] [place], [place] [address] Signed PP Progress Notes Datetime Report Generated by CPN: 05/19/2024 09:44 SUBJECTIVE: [id number] Pain: Within Normal Limits Pain Comments: ongoing bleeding Nausea/Vomiting: Denies Flatus: Yes Bowel Movement: No Vital Signs: [id number] Vital Signs: Reviewed; Within Normal Limits Cardiovascular: Normal Respiratory: Normal Abdomen/Uterus: Normal Lochia: Normal Vulva/Perineum: Normal Breasts: Not Done CVA Tenderness: Not Done Extremities: Normal Incision: Normal Progress: Normal Exam Comments: Fundus firm U-2 moderately tender. No fevers/chills or other concerns. Marj removed after evaluation for any ongoing bleeding. IMPRESSION/PLAN/PROCEDURES: [id number] Impression: Normal Progression Other Impression: Acute blood loss anemia Plan: Continue Present Management Other Plans: To OR to evacuate clots Other Procedures: Marj removal Progress Notes: Pt seen and examined. Doing well. Pain and cravings controlled w/ current regimen. Scant bleeding in Marj tubing and Marj then removed w/out difficulty. Reviewed Hgb and pt asymptomatic at this point but has not ambulated. Good urine output w/ clear urine noted in tubing. Discussed indications for blood transfusion if needed, but will hold off at this point. Will coordinate w/ Methadone clinic re discharge methadone dosing. All questions answered. Signing Physician: Meghan Limon DO *Electronically Signed* 05/19/24 0960 MEGHAN LIMON (CARLOS) DO PATIENT NAME: DEBBIE PARK PROGRESS NOTE DATE OF : 99 PHYSICIAN: MEGHAN LIMON DO (JD) RPT #: [id number] REPORT IS CONFIDENTIAL AND NOT TO BE RELEASED WITHOUT AUTHORIZATION
[2024-05-19] MEDS ORDERED: ACETAMINOPHEN 500 MG TAB PO PRN (13:30)
[2024-05-19] MEDS ORDERED: IBUPROFEN 800 MG TAB PO SCH (15:00)
[2024-05-19 15:06] LABS: HEMATOCRIT 20.1 % (35.0-50.0); HEMOGLOBIN 7.1 g/dL (12.0-18.0); MCH 32.2 (27-36); MCHC 35.3 g/dl (30-36); MCV 91.1 fl (81-99); RBC 2.21 M/ul (4.3-5.7); RDW 13.2 (10.5-15.0)
[2024-05-20 08:42] LABS: BASOPHILS 0.5 % (0-2); EOSINOPHILS 0.1 % (0-6); HEMATOCRIT 18.5 % (35.0-50.0); HEMOGLOBIN 6.5 g/dL (12.0-18.0); LYMPHOCYTES 34.8 % (24-44); MCHC 34.9 g/dl (30-36); MCV 91.7 fl (81-99); MONOCYTES 6.8 % (0-12); NEUTROPHILS 57.8 % (39-80); PLATELET COUNT 199 K/uL (140-440); RBC 2.02 M/ul (4.3-5.7); RDW 13.3 (10.5-15.0)
--- NOTE | 2024-05-20 10:07 | PR ---
[facility] [address] [place], [place] [address] Signed PP Progress Notes Datetime Report Generated by CPN: 05/20/2024 10:07 SUBJECTIVE: [id number] Pain: Within Normal Limits Pain Comments: ongoing bleeding Nausea/Vomiting: Denies Flatus: Yes Bowel Movement: No Vital Signs: [id number] Vital Signs: Reviewed; Within Normal Limits Cardiovascular: Normal Respiratory: Normal Abdomen/Uterus: Normal Lochia: Normal Vulva/Perineum: Not Done Breasts: Not Done CVA Tenderness: Normal Extremities: Normal Incision: Normal Progress: Not Applicable Exam Comments: Fundus firm U-2 nontender. Incision bandaged and dry. Scant blood IMPRESSION/PLAN/PROCEDURES: [id number] Impression: Normal Progression Other Impression: Acute blood loss anemia Plan: Continue Present Management Other Plans: To OR to evacuate clots Other Procedures: Marj removal Progress Notes: Pt seen and examined. Doing well. Ambulating, voiding, and tolerating full diet. No lightheadedness and dizziness. Hgb 6.5 this AM and fibrinogen normal. Discussed iron infusion vs transfusion if needed. All questions answered. Signing Physician: Meghan Limon DO Copies: ~ *Electronically Signed* 05/20/24 MEGHAN WATSON (CARLOS) DO PATIENT NAME: DEBBIE PARK PROGRESS NOTE DATE OF : 99 PHYSICIAN: MEGHAN LIMON) DO RPT #: [id number] REPORT IS CONFIDENTIAL AND NOT TO BE RELEASED WITHOUT AUTHORIZATION
--- NOTE | 2024-05-23 15:42 | OR ---
[facility] [address] [place], [place] [address] Signed DATE OF OPERATION: 05/18/2024 SURGEON: Samantha Peres MD FIXED INCOME MANAGER: CARLOS Limon DO PREOPERATIVE DIAGNOSIS: atony, retained clot. POSTOPERATIVE DIAGNOSIS: atony, retained clot. PROCEDURE: Evacuation of uterine clots, placement of Marj. ANESTHESIA: Spinal with MAC. ESTIMATED BLOOD LOSS: 200 mL. DRAINS: Arvizu catheter, as well as Marj. INDICATIONS AND FINDINGS: The patient is a 23-year-old female 5, para 1-0-3-1, who underwent repeat section earlier today for history of prior J incision extension. Throughout the day, she has continued to have more bleeding than expected despite use of multiple uterotonics. She was re-examined and clots were removed, but after a short period of time, she again had approximately 100 mL of blood loss and she was re-examined and again the uterus was filled with clots, which could not be evacuated from the uterus because of patient's discomfort. It was felt that she would do better in the operating room where the clots could be fully evacuated and better treated. The patient was consented and taken to the operating room. The uterus had a large amount of clot within the cavity. There was no evidence of any retained tissue. DESCRIPTION OF PROCEDURE: The patient was prepped and draped in the dorsal lithotomy position. The uterus was manually explored and the clot evacuated with some difficulty. The entire cavity felt Electronically Signed By: SAMANTHA PERES MD 05/23/24 1542 PATIENT NAME: DEBBIE PARK OPERATIVE REPORT DATE OF : 99 REPORT #: [id number] PHYSICIAN: SAMANTHA PERES MD PCP: NO PRIMARY CARE PHYSICIAN REPORT IS CONFIDENTIAL AND NOT TO BE RELEASED WITHOUT AUTHORIZATION [facility] [address] [place], [place] [address] Signed clear of any clot at the conclusion of the exploration. The Marj was introduced into the uterine cavity. The cervical balloon was inflated with 70 ml of sterile water. This was then attached to wall suction. She tolerated this very well. She had no evidence of ongoing bleeding at that point. She was taken to the recovery room in good condition. Samantha Peres MD PJW/MODL /[id number] Copies: ~ Electronically Signed By: SAMANTHA PERES MD 05/23/24 1542 PATIENT NAME: DEBBIE PARK OPERATIVE REPORT DATE OF : 99 REPORT #: [id number] PHYSICIAN: SAMANTHA PERES MD PCP: NO PRIMARY CARE PHYSICIAN REPORT IS CONFIDENTIAL AND NOT TO BE RELEASED WITHOUT AUTHORIZATION
== END 2024-05-21 21:10 | disposition home or self-care (01) | DRG 787 ==
LOC: FBC 05-18 05:45
PROVIDERS: Obstetrics & Gynecology; ADMIT Obstetrics & Gynecology; ATTEND Obstetrics & Gynecology
PROC: 0W3R7ZZ Control Bleeding in Genitourinary Tract, Via Natural or Artificial Opening (ICD-10-PCS; 2024-05-18)
PROC: 0UC97ZZ Extirpation of Matter from Uterus, Via Natural or Artificial Opening (ICD-10-PCS; 2024-05-18)
PROC: 10D00Z1 Extraction of Products of Conception, Low, Open Approach (ICD-10-PCS; principal; 2024-05-18 07:30)
DX: O34.211 Maternal care for low transverse scar from previous cesarean delivery (principal); D62 Acute posthemorrhagic anemia; F11.20 Opioid dependence, uncomplicated; O99.324 Drug use complicating childbirth; O72.1 Other immediate postpartum hemorrhage; Z3A.37 37 weeks gestation of pregnancy; Z37.0 Single live birth; O26.893 Other specified pregnancy related conditions, third trimester; F15.10 Other stimulant abuse, uncomplicated; O90.81 Anemia of the puerperium; Z67.41 Type O blood, Rh negative
CPT/HCPCS: 01961; 36415; 76942; 80307; 83030; 85025; 85027; 85384; 85610; 85730; 86850; 86870; 86900; 86901; A9270; J0690; J1100; J1885; J2001; J2270; J2274; J2371; J2405; J2590; J2704; J2790; J2795; J3010; J7121

== ENCOUNTER 2024-07-09 08:56 | Emergency (ER) | payer OTHER ==
[~2024-07-09] VITALS: Ht 152.4 cm; Wt 63.1 kg
--- OUTSIDE RECORDS SUMMARY | 2024-07-09 08:58 | XMS ---
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 No recent Security Events currently on file CRITERIA MET - [facility] - 2 Visits in 30 Days - [facility] - 3 Facilities in 90 Days CARE PROVIDERS KULDEEP OCONNELL 05/04/2019-Current PHONE: Unknown -[facility] Dentist: [employer] [facility] PHONE: [phone] -Mery- Dentist: [employer] [facility] PHONE: [phone] SOLANGE SHELTON [facility] Current PHONE: Unknown JIM OBRIEN Physician Current PHONE: [phone] BEN MADISON Physician Insole Reinforcer Current PHONE: [phone] Ethan has no Care Guidelines for this patient. EBelinda VISIT COUNT (12 MO.) 3 LUIS MIGUEL [facility] 2 [facility] NOTE: Visits indicate total known visits. ED/UCC VISIT TRACKING (12 MO.) 07/09/2024 08:57 LUIS MIGUEL [facility] TYPE: Emergency COMPLAINT: - ALLERGY REACTION 06/27/2024 22:18 [facility] MICHI Frost TYPE: Emergency COMPLAINT: - Vaginal Bleeding DIAGNOSES: - Abnormal uterine and vaginal bleeding, unspecified - Vaginal Bleeding 05/28/2024 10:58 [facility] [place] TYPE: Emergency DIAGNOSES: - Drug induced constipation - Gastro-esophageal laceration-hemorrhage syndrome - Other immediate hemorrhage - Patient's noncompliance with other medical treatment and regimen due to unspecified reason - PUKING BLOOD 02/01/2024 22:01 [facility] [place] TYPE: Emergency DIAGNOSES: - 31 weeks gestation of - Nausea with vomiting, unspecified - Lethargic 01/14/2024 23:10 LUIS MIGUEL [facility] [place] TYPE: Emergency COMPLAINT: - CRAMPS/7 WEEKS PREGO 12/25/2023 00:30 LUIS MIGUEL [facility] [place] TYPE: Emergency COMPLAINT: - MEDICAL CLEARANCE DIAGNOSES: - 26 weeks gestation of - Drug use complicating , second trimester - Drug use complicating , second trimester - Encounter for other administrative examinations - Imprisonment and other incarceration - Opioid use, unspecified, uncomplicated INPATIENT VISIT TRACKING (12 MO.) 05/18/2024 05:45 LUIS MIGUEL Morrissey TYPE: [facility] COMPLAINT: - REPEAT SECTION DIAGNOSES: - 37 weeks gestation of - 37 weeks gestation of - Acute posthemorrhagic anemia - Acute posthemorrhagic anemia - Anemia of the puerperium - Anemia of the puerperium - Drug use complicating childbirth - Drug use complicating childbirth - Maternal care for low transverse scar from previous delivery - Opioid dependence, uncomplicated - Opioid dependence, uncomplicated - Other immediate hemorrhage - Other immediate hemorrhage - Other specified related conditions, third trimester - Other specified related conditions, third trimester - Other stimulant abuse, uncomplicated - Other stimulant abuse, uncomplicated - Single live - Single live - Type O blood, Rh negative - Type O blood, Rh negative 03/03/2024 17:24 Adam MICHELLE TYPE: Obstetrics DIAGNOSES: - Drug use complicating , third trimester - CASSY IN [email or web address]
[2024-07-09 09:38] VITALS: BP 130/75
== END 2024-07-09 09:38 | disposition home or self-care (01) ==
LOC: ED 08:56
DX: T65.891A Toxic effect of other specified substances, accidental (unintentional), initial encounter (principal); K13.79 Other lesions of oral mucosa; F17.200 Nicotine dependence, unspecified, uncomplicated
CPT/HCPCS: 36415; 84703; 99283

== ENCOUNTER 2025-08-10 11:30 | Inpatient (IN) | payer OTHER ==
[2025-08-10] VITALS (13 sets, daily range): BP systolic 121–137; BP diastolic 78–97
[~2025-08-10 11:30] MED LIST changes: +SEVOFLURANE 250 ML BTL INH ONE
[2025-08-10] MEDS ORDERED: TRANEXAMIC ACID 1,000 MG/10 ML AMP ONE ×2 (11:58→12:15)
[2025-08-10] MEDS ORDERED: PHENYLEPHRINE HCL IN 0.9% NACL 1 MG/10 ML SYR ONE ×4 (12:03→12:50)
[2025-08-10 12:05] LABS: BASE EXCESS, BLOOD GAS -24.7 mmol/L (-2-2); HCO3, BLOOD GAS 11.9 mmol/L (22-26); O2 SATURATION, BLOOD GAS 39.8 % (95.0-100.0); OXYGEN RECEIVED, BLOOD GAS 10L; PCO2, BLOOD GAS 85.3 mmHg (35-45); PH, BLOOD GAS 6.75 (7.35-7.45); PO2, BLOOD GAS 33 mmHg (80-100); TOTAL CO2, BLOOD GAS 14.6
[2025-08-10] MEDS ORDERED: LIDOCAINE 2% VISCOUS 6 ML SYR TOP ONE (12:15)
[2025-08-10] MEDS ORDERED: LACTATED RINGER'S 1,000 ML IV PRN (12:15)
[2025-08-10 12:30] LABS: MCH 29.2 PG (25.6-32.2); MCHC 31.9 g/dL (32.2-35.5); MCV 91.4 fL (79.4-94.8); RBC 2.09 M/uL (3.93-5.22)
[2025-08-10 12:34] LABS: INR 1.21 (0.80-1.30); PROTIME 14.9 Sec (11.2-14.2)
[2025-08-10] MEDS ORDERED: Ropivacaine HCl 0.5% 30 ML VIAL ONE (12:51)
[2025-08-10] MEDS ORDERED: OXYTOCIN 10 UNITS/ML VIAL ONE (12:51)
[2025-08-10 12:52] LABS: ABO O; RH NEGATIVE
[2025-08-10 12:53] LABS: ANTIBODY SCREEN NEGATIVE
[2025-08-10] MEDS ORDERED: SUGAMMADEX SODIUM 200 MG/2 ML ML ONE (13:02)
[2025-08-10 13:08] LABS: BASOPHILS 0.3 % (0.1-1.2); EOSINOPHILS 0.5 % (0.7-5.8); LYMPHOCYTES 8.1 % (19.3-51.7); MCH 30.3 PG (25.6-32.2); MCHC 33.2 g/dL (32.2-35.5); MCV 91.2 fL (79.4-94.8); MONOCYTES 5.2 % (4.7-12.5); NEUTROPHILS 84.3 % (34.0-71.1); RBC 2.38 M/uL (3.93-5.22)
[2025-08-10 13:26] LABS: INR 1.35 (0.80-1.30); PROTIME 16.2 Sec (11.2-14.2)
[2025-08-10] MEDS ORDERED: ACETAMINOPHEN 1,000 MG/100 ML VIAL ONE (13:53)
[2025-08-10] MEDS ORDERED: ROCURONIUM BROMIDE 50 MG/5 ML SYR ONE (13:54)
[2025-08-10] MEDS ORDERED: SUCCINYLCHOLINE IN 0.9% NACL 200 MG/10 ML SYRINGE ONE (13:54)
[2025-08-10] MEDS ORDERED: fentaNYL citrate 100 MCG/2 ML VIAL ONE (14:03)
[2025-08-10] MEDS ORDERED: NACL IV SCH (14:15)
[2025-08-10] MEDS ORDERED: NALOXONE HCL 0.4 MG SYR IV PRN ×2 (14:15→14:30)
[2025-08-10] MEDS ORDERED: MORPHINE SULFATE IV SCH (14:15)
[2025-08-10] MEDS ORDERED: fentaNYL citrate 100 MCG/2 ML VIAL IV ONE (14:15)
[2025-08-10] MEDS ORDERED: PCA SYRING IV SCH (14:15)
[2025-08-10] MEDS ORDERED: fentaNYL citrate 50 MCG/ML SDV IV PRN (14:30)
[2025-08-10] MEDS ORDERED: HYDROmorphone HCL 1 MG/ML SYR IV PRN (14:30)
[2025-08-10] MEDS ORDERED: IBLOOD GLUCOSE TEST STRIP 1 EA TEST VI PRN (14:30)
[2025-08-10] MEDS ORDERED: LACTATED RINGER'S 1,000 ML IV SCH (14:41)
[2025-08-10 14:43] LABS: MCH 29.8 PG (25.6-32.2); MCHC 32.5 g/dL (32.2-35.5); MCV 91.8 fL (79.4-94.8); RBC 1.71 M/uL (3.93-5.22)
[2025-08-10] MEDS ORDERED: CEFAZOLIN SODIUM 2 GM VIAL ONE (14:44)
[2025-08-10] MEDS ORDERED: CEFAZOLIN SODIUM 2 GM in SODIUM CHLORIDE 0.9% 100 ML IV ONE (14:45)
[2025-08-10] MEDS ORDERED: PROMETHAZINE HCL 25 MG TAB PO PRN (14:45)
[2025-08-10] MEDS ORDERED: OXYCODONE/APAP 5/325 TAB PO PRN (14:45)
[2025-08-10] MEDS ORDERED: METOCLOPRAMIDE HCL 10 MG/2 ML SDV IV PRN (14:45)
[2025-08-10] MEDS ORDERED: PROMETHAZINE HCL 25 MG SUPP PR PRN (14:45)
[2025-08-10] MEDS ORDERED: PROCHLORPERAZINE EDISYLATE 10 MG/2 ML VIAL IV PRN (14:45)
[2025-08-10] MEDS ORDERED: OXYTOCIN/0.9 % SODIUM CHLORIDE 500 ML IV SCH (14:45)
[2025-08-10 14:48] LABS: INR 1.73 (0.80-1.30); PROTIME 19.2 Sec (11.2-14.2)
--- NOTE | 2025-08-10 14:57 | NUR ---
08/10/25 MykelFrancisca Munoz 1345- PT TAKEN TO ROOM 126 IN CCU FOR RECOVERY, PT DROWSY BUT VERY RESPONSIVE. PT KEEPS EYES CLOSED AND MOANS IN RESPONSE. NOTED HER PRESENTATION PRE OP WELL. LR INFUSING TO 18 G LAC IV. PT ALSO HAS 18 G SALINE LOCK TO RH, EMS START, DRESSING CDI AND 18 G IV TO RAC, DRESSING CDI. ABD SOFT, NON DISTENDED. NO VAGINAL BLEEDING. RODRIGUEZ CATHETER IN PLACE, DRAINING CLEAR YELLOW URINE. PT MOVING ALL EXTREMITIES EQUALLY. PT TEMPERATURE LOW, WARM BLANKETS APPLIED AND BEAR HUGGER BEING OBTAINED. 1352- PT MOVED TO ROOM AIR AT THIS TIME. 1355- [facility] BED IS NOT COMPATIBLE WITH CCU PLUG INS, PT MOVED OVER TO NEW BED. PT ABLE TO VERBALIZE PAIN 10/10 AND NAUSEA. MEDICATIONS BEING PULLED AT THIS TIME. 1400- DR WALTER IN ROOM. 1406- PT MEDICATED WITH ZOFRAN AND FENTANYL. 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 1425- RODRIGUEZ EMPTIED, CLEAR YELLOW URINE. LR HANGING TKO. BEAR HUGGER IN PLACE, PT TEMP REMAINS LOW. PT CONTINUES TO MOAN AND NOT VERBALIZE A LOT. REPORT TO BEN MASSEY AT BEDSIDE, CARE OF PT TURNED OVER AT THIS TIME.
--- NOTE | 2025-08-10 15:00 | NUR ---
CARE OF PT ASSUMED, REPORT RECEIVED FROM FORESTRY PROFESSOR IRIS. PT IS DROWSY, AROUSABLE, SLIGHTLY CONFUSED WHEN SHE WAKES UP, EASILY REDIRECTED. PT IS TRANSFERRED TO CRITICAL CARE AFTER CODE 4 AND REPAIR OF UTERINE RUPTURE. VSS ON ADMIT TO CCU ARE STABLE, PT IS ON ROOM AIR WITH SPO2 100%, RR 12-14. SHE WAS GIVEN FENTANYL BY FORESTRY PROFESSOR. ASSESSMENT DONE. PT HAS THREE WORKING IVS. SHE HAS A PERIPAD IN PLACE WITH NO DRAINAGE ON IT. ABDOMEN IS SOFT, FUNDAL CHECK DONE, UTERUS FIRM, 3 FINGERS BELOW UMBILICUS. LOWER ABDOMEN HAS DRESSING IN PLACE, CDI. ABDOMEN VERY TENDER, PT DOES CRY WITH FUNDAL MASSAGE. PTS HR IS 70-80'S SINUS RHYTHM.
[2025-08-10 15:03] LABS: MCH 30.0 PG (25.6-32.2); MCHC 33.6 g/dL (32.2-35.5); MCV 89.3 fL (79.4-94.8); RBC 3.07 M/uL (3.93-5.22)
--- NOTE | 2025-08-10 15:11 | NUR ---
DR. WALTER NOTIFIED OF REPEAT LABS; HEMOGLOBIN IS 9.2. LAB DID CALL AND INFORM THAT THE NEW SAMPLE WAS COLLECTED STRAIGHT NEEDLE, WOULD MD LIKE REPEAT DIC PANEL: PTT, FIBRINOGEN? MD WILL INPUT NEW ORDERS TO REPEAT THOSE. ALSO, AT THIS TIME PER MD, HOLD THE BLOOD TRANSFUSION, WILL STILL TRANSFUSE THE PLATELETS AND FFP. PRIMARY RN NOTIFIED OF UPDATED ORDERS.
[2025-08-10 15:54] LABS: INR 1.16 (0.80-1.30); PROTIME 14.0 Sec (11.2-14.2)
[2025-08-10 15:58] LABS: ABO O; ANTIBODY SCREEN NEGATIVE; FETAL HEMOGLOBIN SCREEN NEGATIVE; RH NEGATIVE
[2025-08-10 15:59] LABS: RHIG STATUS NOT A CANDIDATE
[2025-08-10] MEDS ORDERED: SIMETHICONE 80 MG CHEW PO SCH (16:00)
--- NOTE | 2025-08-10 16:00 | NUR ---
UNIT OF FFP STARTED. ZIGZAG ELASTIC ATTACHER SET UP. PT HAD BEEN CRYING AND MOANING, LOADING DOSE GIVEN AND THEN PT LAID BACK DOWN TO REST.
--- NOTE | 2025-08-10 16:31 | NUR ---
PT CONT TO BE RESTING WITH EYES CLOSED, NO MORE MOANING AND CRYING. MOTHER AND GRANDMOTHER IN ROOM. HR 100. SPO2 100% ON ROOM AIR, RR 15.
[2025-08-10] MEDS ORDERED: FERROUS SULFATE 325 MG TAB PO SCH (17:00)
[2025-08-10 17:58] LABS: MCH 29.9 PG (25.6-32.2); MCHC 33.9 g/dL (32.2-35.5); MCV 88.3 fL (79.4-94.8); RBC 2.64 M/uL (3.93-5.22)
[2025-08-10 18:12] LABS: INR 1.14 (0.80-1.30); PROTIME 14.1 Sec (11.2-14.2)
--- NOTE | 2025-08-10 18:13 | NUR ---
CALL TO DR WALTER TO UPDATE HIM ON HR TRENDING UP, STATES HE WILL BE DOWN TO BEDSIDE SOON TO EVALUATE PT AND DISCUSS POSSIBLE TRANSFER. PT MOSTLY RESTING WITH EYES CLOSED, WAKES OCCASIONALLY, DOES COMPLAIN OF PAIN WHEN SHE WAKES, REMINDED HER TO USE ADOBE LAYER.
[2025-08-10] MEDS ORDERED: KETOROLAC TROMETHAMINE 30 MG/ML VIAL IV SCH (20:00)
--- NOTE | 2025-08-10 20:15 | NUR ---
PLATELETS STARTED, MARLO RN WAS 2ND NURSE TO VERIFY. PATIENT DROWSY BUT RESPONSIVE TO VERBAL STIMULI. FUNDAL CHECK DONE. FLOAT RN, LARRY, MEASURED FUNDUS AT 2 FINGERS ABOVE UMBILLICUS. PATIENT CRIES OUT WITH PALPATION. ABD SOFT, BOWEL TONES ACTIVE. PATIENT HAS MOTHER IN ROOM AT THIS TIME. ABDOMINAL DRESSING IS CDI. RODRIGUEZ AND SCDS IN PLACE. IVS FLUSHED AND WNL, MORPHINE MANAGER CUSTOMER SERVICE, PLATELETS AND PITOCIN INFUSING AT THIS TIME. BLE MODERATE EDEMA NOTED, PEDAL PULSES STRONG.MODERATE EDEMA NOTED IN LIPS AND BILATERAL HANDS. PATIENT AFEBRILE REQUESTING JUICE. REMAINING IN ROOM FOR FIRST 15 MINUTES OF PLATELET INFUSION.
[2025-08-10 20:35] LABS: N. GONORRRHOEAE BY PCR NOT DETECTED (NOT DETECT)
[2025-08-10] MEDS ORDERED: SENNOSIDES/DOCUSATE 1 EA TAB PO SCH (21:00)
--- NOTE | 2025-08-10 21:22 | NUR ---
REVIEWED ORDERS AND PLAN OF CARE WITH . ONLY ONE PACK OF PLATELETS AT THIS TIME; RECHECK LABS AT 0000. HOLD PO PAIN MEDS UNTIL MORNING WHILE PATIENT HAS ARCHITECTURE DRAFTER.
--- NOTE | 2025-08-10 21:24 | NUR ---
PATIENT'S MOTHER LEAVING AT THIS TIME. JAKE CATALAN ATTEMPTED TO SPEAK TO THE PATIENT VIA PHONE ABOUT THE CARE OF THE BABY. PATIENT UNABLE TO HOLD CONVERSATION AT THIS TIME. PLAN TO CALL PATIENT'S MOM WHEN PATIENT IS MORE AWAKE AND THEN CALL JAKE BACK.
--- NOTE | 2025-08-10 22:25 | NUR ---
PLATELETS FINISHED INFUSING, PATIENT REMAINS AFEBRILE WITH NO OTHER S/S OF REACTION. FLOWSHEET COMPLETE. PATIENT CONTINUES TO BE DROWSY, WILL ALLOW TO REST. MOTHER PLANS TO COME BACK WHEN PATIENT IS MORE ALERT TO DISCUSS HER CHILD'S PLAN OF CARE. PATIENT DENIES FURTHER NEEDS. MICHAEL CARBALLO.
[2025-08-11] VITALS (13 sets, daily range): BP systolic 84–136; BP diastolic 46–86
--- NOTE | 2025-08-11 00:10 | NUR ---
PATIENT RESTING WITH EYES CLOSED. WAKES EASILY TO VOICE. PATIENT REPORTS SHE IS "DOING OKAY". LAB IN ROOM FOR SCHEDULED DRAW.
[2025-08-11 00:17] LABS: MCH 30.0 PG (25.6-32.2); MCHC 34.5 g/dL (32.2-35.5); MCV 87.0 fL (79.4-94.8); RBC 2.23 M/uL (3.93-5.22)
[2025-08-11 00:35] LABS: INR 1.08 (0.80-1.30); PROTIME 13.6 Sec (11.2-14.2)
--- NOTE | 2025-08-11 00:49 | NUR ---
IN TO SEE PATIENT. PATIENT IS DROWSY BUT WAKES EASILY. VISUAL EXAM BY . PATIENT UPDATED ON LAB FINDINGS AND PLAN TO TRANSFUSE MORE PRBC. PATIENT VERBALIZED UNDERSTANDING.
--- NOTE | 2025-08-11 01:36 | NUR ---
PRBC INFUSING. NO SIGN OF REACTION. PATIENT'S ORAL TEMP IS ELEVATED AT 99.3 F PATIENT REPORTS FEELING HOT UNDER THE SEVERAL BLANKETS SHE HAD ON FROM BEING COLD PRIOR. REDUCED TO ONE BLANKET AND ADJUSTED THE ROOM TEMP. PATIENT HR AND BP STABLE. TOLERATING ROOM AIR. IV SITES WNL X3.
[2025-08-11] MEDS ORDERED: ENOXAPARIN SODIUM 40 MG/0.4 ML SYR SUB-Q SCH (02:00)
--- NOTE | 2025-08-11 02:05 | NUR ---
PAIN IN ABD 02/20, SCHEDULED MED PROVIDED. URINE METER EMPTIED. PT RESTING IN BED, NO OTHER NEEDS AT THIS TIME. CALL LIGHT IN REACH.
[2025-08-11] MEDS ORDERED: LACTATED RINGER'S 1,000 ML IV SCH (05:00)
[2025-08-11 06:13] LABS: MCH 29.6 PG (25.6-32.2); MCHC 34.0 g/dL (32.2-35.5); MCV 87.0 fL (79.4-94.8); RBC 2.84 M/uL (3.93-5.22)
[2025-08-11 06:16] LABS: IS CROSSMATCH COMPATIBLE
[2025-08-11 06:36] LABS: ALT (SGPT) 17.0 U/L (14-59); AST (SGOT) 27.0 U/L (15-37); GLOMERULAR FILTRATION RATE,EST 130.0 mL/min (>60); PROTEIN, TOTAL 4.4 g/dL (6.4-8.2); UREA NITROGEN 11.0 mg/dL (7-18)
[2025-08-11 06:43] LABS: IS CROSSMATCH COMPATIBLE
[2025-08-11 06:55] LABS: INR 1.06 (0.80-1.30); PROTIME 13.1 Sec (11.2-14.2)
--- NOTE | 2025-08-11 07:30 | NUR ---
REPORT RECEIVED FROM MARLO MASSEY, PT IN BED, RESTING WITH EYES CLOSED. VSS. MOM IN ROOM AWAKE, DENIES NO NEEDS AT THIS TIME.
--- NOTE | 2025-08-11 08:20 | NUR ---
IN TO DO ASSESSMENT. PT HAS QUITE A BIT OF GENERAL EDEMA BUT OVERALL IT IS LESS THAN IT WAS YESTERDAY. IVF INFUSING, MORPHINE TABLET TECHNICIAN IN PLACE. PT HAS NOT USED MUCH OF HER TABLET TECHNICIAN, SHE IS QUITE DROWSY BUT DOES AWAKEN WITH VERBAL STIMULATION.
--- NOTE | 2025-08-11 08:45 | NUR ---
PT ASSISTED TO SIT UP AND EAT BREAKFAST. AM MEDS GIVEN, PT COMPLAINS OF PAIN, TRANSPORTER DRIVER IN REACH AND IV TORADOL GIVEN.
--- NOTE | 2025-08-11 09:10 | NUR ---
DR WALTER IN TO SEE PT.
[2025-08-11] MEDS ORDERED: IBUPROFEN 800 MG TAB PO PRN (10:00)
--- NOTE | 2025-08-11 11:40 | NUR ---
PT RESTING IN BED WITH MOM AT BEDSIDE. PT STATES PAIN IS CURRENTLY 3/10 TO RIBS/ABD. PT STATES PAIN IS TOLERABLE AT THIS TIME. MOTHER IS ASSISTING PT TO ORDER MEALS. NO NEEDS IDENTIFIED AT THIS TIME. CALL LIGHT WITHIN REACH.
--- NOTE | 2025-08-11 12:30 | NUR ---
IN TO CHECK ON PT, PT IS RESTING WITH EYES CLOSED. FAMILY AT BEDSIDE, SAY SHE WAS JUST AWAKE AND TALKING BUT QUICKLY WENT BACK TO SLEEP. RESTING HR 100'S, MOM STATES SHE HAS SAID HER PAIN IS DOWN TO 4/10 AND HAS BEEN MORE COMFORTABLE TODAY. PAD CHECKED, NO BLOOD ON IT, ABDOMEN SOFT AND TENDER, NO CHANGES IN ASSESSMENT.
--- NOTE | 2025-08-11 14:00 | NUR ---
PT CALLS TO ASK TO GO INTO BATHROOM TO TRY TO HAVE A BOWEL MOVEMENT. PT HAS NOT YET BEEN OUT OF BED, 2PA WITH SECOND RN TO HELP PT UP. PT DID HAVE SOME DIZZINES/LIGHTHEADEDNESS WHILE SITTING UP. SHE WAS QUITE PAINFUL WITH MOVING WELL. SHE THEN DECIDED SHE DID NOT WANT TO TRY TO WALK INTO BATHROOM. SHE WAS ABLE TO STAND AND TAKE A FEW STEPS UP TO TOP OF BED WHILE LINENS WERE CHANGED. SHE THEN GOT BACK INTO BED, RAJENDRA CARE DONE THERE WERE A FEW DROPS OF BLOOD WITH STANDING. SHE IS COMFORTABLE ONCE BACK IN BED, DENIES NEED FOR PAIN MEDICATION. IVF CONT INFUSING. MOM AND S/O IN AT BEDSIDE.
--- NOTE | 2025-08-11 15:30 | NUR ---
PT REQUESTS PAIN MEDICATION FOR ABD PAIN, PERCOCET GIVEN WITH CRACKERS.
--- NOTE | 2025-08-11 16:42 | NUR ---
DR EDWARD IN TO SEE PT.
--- NOTE | 2025-08-11 17:31 | NUR ---
PATIENT IS SITTING UP IN BED. PATIENT STATED SHE HAD PAIN IN HER LEGS AND LOWER BACK. RN WAS NOTIFIED. PATIENTS CALL LIGHT IS WITHIN REACH AND NO FURTHER NEEDS AT THIS TIME.
--- NOTE | 2025-08-11 18:33 | NUR ---
PT BROUGHT OVER TO [facility] ROOM 106. REPORT GIVEN TO ELSY MASSEY.
[2025-08-11] MEDS ORDERED: IBUPROFEN 600 MG TAB PO SCH (20:00)
[2025-08-11] MEDS ORDERED: NICOTINE 7 MG/24 HR 1 EA TDSY TD SCH (20:36)
[2025-08-12 08:56] LABS: HIV 1,2 COMBO ANTIGEN/ANTIBODY Negative (Negative)
[2025-08-12 09:54] LABS: HEPATITIS C AB CIA INTERP Negative (Negative); HEPATITIS C ANTIBODY CIA INDEX 0.04 IV (())
[2025-08-12 11:15] LABS: RAPID PLASMA REAGIN (RPR) Non Reactive (Non Reactive)
[2025-08-12 14:46] LABS: RUBELLA ANTIBODY IGG 19.9 IU/mL (<=8.9)
--- NOTE | 2025-08-14 13:12 | PATH ---
[facility] [address], [place] [address] Signed SPECIMEN(S): A PLACENTA SPECIMEN SOURCE: A. PLACENTA H [id number] CLINICAL HISTORY: Uterine rupture FINAL PATHOLOGIC DIAGNOSIS: Placenta: - Mature 777 g placenta with three-vessel umbilical cord. - Negative for significant chorioamnionitis or funisitis. - Focal partial-thickness placental disc infarction comprising less than 5% of the placental disc volume. - Villous and perivillous fibrin deposition and calcification. JVR MICROSCOPIC EXAMINATION: Histologic sections of all submitted blocks are examined by light microscopy. These findings, together with the gross examination, support the pathologic diagnosis. GROSS DESCRIPTION: The specimen, labeled and designated "[place], placenta," is received fresh and placed in formalin and consists of espana discoid placenta with the following parameters: Umbilical cord: Insertion Central, measurement 19.5 x 1.3 cm; trivascular. Cord coiling index (per 10 cm): 17. Lesions: Not grossly identified. Membranes: Insertion site: Marginal, looney/translucent. Intact. Other: Not grossly identified. Chorionic Plate: Normal radiating vascular pattern, blue-purple and shiny. Lesions: Not grossly identified. Other: Not grossly identified. Maternal Surface: Normal cotyledons, intact. Lesions: Not grossly identified. Measurement: 26.9 x 17.9 x 1.5 cm. 777 g Cut Surface: Maroon and spongy. Lesions: A single focal lesion that is looney-white firm and wedge-shaped, 0.9 x 0.7 x 0.7 cm, and centrally located, 5 cm to the umbilical cord insertion site. Basal plate fibrin 0.2 cm in thickness. Other Findings: Not grossly identified. Cassette Summary: PATIENT NAME: DEBBIE AUSTIN PATHOLOGY DATE OF : 89 REPORT #: [id number] PHYSICIAN: [facility] PCP: NO PRIMARY CARE PHYSICIAN REPORT IS CONFIDENTIAL AND NOT TO BE RELEASED WITHOUT AUTHORIZATION [facility] [address], [place] [address] Signed (A1) membranes and umbilical cord (A2) placenta parenchyma (A3) placenta parenchyma (A4) placenta parenchyma EO (under the direct supervision of a pathologist) The Gross Description was prepared using a voice recognition system. The report was reviewed for accuracy; however, sound-alike word errors, addition and/or deletions may occur. If there is any question about this report, please contact Client Services. ADDITIONAL NOTES: Immunohistochemical and/or in situ hybridization studies if performed in this case included appropriate positive controls that reacted as expected. This test was developed and its performance characteristics determined by [facility]. It has not been cleared or approved by the U.S. Food and Drug Administration. The FDA has determined that such clearance or approval is not necessary. This test is used for clinical purposes. It should not be regarded as investigational or for research. [facility] is certified under the Clinical Laboratory Improvement Amendments of 1988 (CLIA) as qualified to perform high complexity clinical laboratory testing. PERFORMING LABORATORY: Technical component was performed by [facility], [address] [place] [id number] (CLIA# [id number]). Professional interpretation was performed by [facility] Pathology - [facility] - [address] [place] [address] (CLIA#: [id number]). Diagnostician: Martinez Sahni MD Pathologist Electronically Signed 08/14/2025 Copies: ~ PATIENT NAME: DEBBIE AUSTIN PATHOLOGY DATE OF : [birth year] REPORT #: [id number] PHYSICIAN: RASHEED JAIN PCP: NO PRIMARY CARE PHYSICIAN REPORT IS CONFIDENTIAL AND NOT TO BE RELEASED WITHOUT AUTHORIZATION
== END 2025-08-12 09:45 | disposition home or self-care (01) | DRG 786 ==
LOC: FBCO 11:30 → FBC 11:40 → CCU 11:40 → FBC 08-11 18:35
PROVIDERS: ADMIT Obstetrics & Gynecology; ATTEND Obstetrics & Gynecology
PROC: 0UQ90ZZ Repair Uterus, Open Approach (ICD-10-PCS; 2025-08-10)
PROC: 30233N1 Transfusion of Nonautologous Red Blood Cells into Peripheral Vein, Percutaneous Approach (ICD-10-PCS; 2025-08-10)
PROC: 3E03329 Introduction of Other Anti-infective into Peripheral Vein, Percutaneous Approach (ICD-10-PCS; 2025-08-10)
PROC: 10D00Z1 Extraction of Products of Conception, Low, Open Approach (ICD-10-PCS; principal; 2025-08-10 11:50)
DX: O34.211 Maternal care for low transverse scar from previous cesarean delivery (principal); K66.1 Hemoperitoneum; O45.8X3 Other premature separation of placenta, third trimester; O71.1 Rupture of uterus during labor; D62 Acute posthemorrhagic anemia; O36.8330 Maternal care for abnormalities of the fetal heart rate or rhythm, third trimester, not applicable or unspecified; Z37.0 Single live birth; O26.893 Other specified pregnancy related conditions, third trimester; Z67.41 Type O blood, Rh negative; Z3A.37 37 weeks gestation of pregnancy; O90.81 Anemia of the puerperium; O99.334 Smoking (tobacco) complicating childbirth; F17.210 Nicotine dependence, cigarettes, uncomplicated
CPT/HCPCS: 01961; 31500; 36415; 36430; 74018; 80053; 80307; 82803; 83030; 85025; 85027; 85384; 85610; 85730; 86762; 86803; 86850; 86900; 86901; 86922; 87340; 92950; A9270; J0131; J0165; J0330; J0688; J1885; J2270; J2405; J2590; J2704; J2790; J2795; J3010; J3490; J7121; P9016; P9035; P9059